=== PATIENT | female | born 1975 | race African-American/Black ===

== ENCOUNTER 2021-10-12 04:07 | Day surgery (SDC) | payer OTHER ==
[2021-10-07 15:22] VITALS: BMI 27.6
[2021-10-12] MEDS ORDERED: PROPOFOL 20 ML ONE (07:21)
[2021-10-12] MEDS ORDERED: ROPIVACAINE HCL 0.5% 30ML VIAL ONE (07:41)
[2021-10-12] MEDS ORDERED: DEXAMETHASONE SOD PHOSPHATE 10 MG/1 ML VIAL ONE (07:41)
[2021-10-12] MEDS ORDERED: MIDAZOLAM HCL 2 MG/2 ML SINGLE DOSE VIAL ONE ×3 (07:58)
[2021-10-12] MEDS ORDERED: ceFAZolin SODIUM 1 GM VIAL ONE (08:31)
[2021-10-12] MEDS ORDERED: ceFAZolin 2 GRAM PREMIX BAG IVPB ONE (08:33)
[2021-10-12] MEDS ORDERED: ONDANSETRON 4 MG/2 ML VIAL IVPUSH PRN (08:57)
[2021-10-12] MEDS ORDERED: oxyCODONE HCL 5 MG TABLET PO PRN (08:57)
[2021-10-12] MEDS ORDERED: LACTATED RINGERS SOLUTION 1,000 ML IV SCH (09:00)
[2021-10-12 10:43] VITALS: RESP 20
[2021-10-12 12:47] VITALS: TEMP 97.3
[2021-10-12 12:50] VITALS: BP 130/84; PULSE 85
== END 2021-10-12 12:40 | disposition home or self-care (01) ==
LOC: JASU-SURG 04:07
PROVIDERS: ATTEND Orthopaedic Surgery
PROC: 0RQJ4ZZ Repair Right Shoulder Joint, Percutaneous Endoscopic Approach (ICD-10-PCS; principal; 2021-10-12 08:00)
DX: S43.431A Superior glenoid labrum lesion of right shoulder, initial encounter (principal); X58.XXXA Exposure to other specified factors, initial encounter; Y93.9 Activity, unspecified; Y92.9 Unspecified place or not applicable; Y99.9 Unspecified external cause status
CPT/HCPCS: 81025; 94760; J1100